=== PATIENT | female | born 1990 | race Caucasian/White ===

== ENCOUNTER → 2020-01-13 | Outpatient (CLI) | payer OTHER ==
--- NOTE | 2020-01-13 18:40 | REP ---
Clinical: Pelvic pain. Technique: Transvaginal ultrasound examination. Findings: Normal retroflexed uterus measures 7.5 x 3.9 x 4.7 cm. Endometrial complex measures 5.6 mm thickness. No discrete uterine or endometrial abnormalities are appreciated. The bilateral ovaries are normal in appearance. Right ovary measures 3.6 x 2.2 x 2.5 cm. Left ovary measures 2.9 x 2.2 x 2.4 cm. No pelvic fluid or adnexal mass lesion. Impression: Normal pelvic ultrasound. Electronically Signed by Jesu Kincaid MD 01/13/2020 06:31 P
== END ==
LOC: M RAD 13:20
PROVIDERS: ATTEND Nurse Practitioner Family
DX: R10.2 Pelvic and perineal pain (principal)